=== PATIENT | female | born 1975 | race Caucasian/White ===

== ENCOUNTER 2022-04-12 17:27 | Emergency (ER) | payer OTHER ==
[~2022-04-12] VITALS: Ht 157.5 cm; Wt 46.3 kg
== END 2022-04-12 20:56 | disposition home or self-care (01) ==
LOC: ER 17:27
DX: R42 Dizziness and giddiness (principal); R51.9 Headache, unspecified; Z88.8 Allergy status to other drugs, medicaments and biological substances